=== PATIENT | female | born 1985 | race Caucasian/White ===

== ENCOUNTER 2017-03-16 15:42 | Emergency (ER) | payer OTHER ==
[~2017-03-16] VITALS: Ht 160 cm; Wt 54.0 kg
[2017-03-16 15:44] VITALS: Ht 160 cm; Wt 54.0 kg
--- NOTE | 2017-03-16 16:57 | RADRPT ---
PROCEDURE: Chest Radiograph. CLINICAL INDICATION: Chest pain TECHNIQUE: Single frontal chest radiograph. COMPARISON: None available FINDINGS: The cardiomediastinal silhouette is within normal limits. No infiltrate or effusion is seen. Th e bones are intact. IMPRESSION: 1. Unremarkable chest radiograph. RPTAT: [facility] .Edis Messina MD, MD Date Time Electronically viewed and signed by .Edis Messina MD, on 03/16/2017 16:56 .B/
--- NOTE | 2017-03-16 18:06 | ERD ---
ER Documentation Chief Complaint Date/Time DATE: 03/16/17 TIME: 18:04 Chief Complaint 8/10 CP with SOB and Anxiety x 30 minutes HPI 31-year-old female patient with a past medical history of leukemia presents to the ED complaining of chest pain and shortness of breath that started earlier this morning. Reports that it feels like someone is talking her chest region. States that it is worse when she presses on her chest region. Denies any alleviating factors. States that she has been taking Advil with slight relief of her pain. Denies any wheezing, shortness of breath, fever, chills, abdominal pain, nausea, vomiting. ROS All systems reviewed and are negative except as per history of present illness. Allergies Allergies: Coded Allergies: No Known Allergy (Unverified , 03/16/17) PMhx/Soc Medical and Surgical Hx: pt denies Medical Hx, pt denies Surgical Hx Hx Alcohol Use: No Hx Substance Use: No Hx Tobacco Use: No Smoking Status: Unknown if ever smoked Physical Exam Vitals Vital Signs Date Time Temp Pulse Resp B/P Pulse Ox O2 Delivery O2 Flow Rate FiO2 03/16/17 15:44 98.3 89 18 140/97 97 Physical Exam Const: [id number], well-nourished. In no acute distress. Head: Atraumatic, normocephalic Eyes: Normal Conjunctiva without injection. No purulent discharge. PERRL. EOMI ENT: Normal external ear. Ear canal without erythema. Tympanic membrane pearly quispe without effusion or bulging. Nasal canal clear with normal turbinates. Moist oropharynx without tonsillar exudates. Non-erythematous pharynx. Uvula midline. No drooling. No trismus. Neck: Full range of motion. No meningismus. No cervical lymphadenopathy. Resp: Clear to auscultation bilaterally. No wheezing, rhonchi, rales, or crackles. No accessory muscle use. No retractions. Cardio: Regular rate and rhythm. No murmurs, rubs or gallops. Chest: Anterior chest pain is reproducible. Abd: Soft, non tender, non distended. Normal bowel sounds. No palpable masses. No rebound tenderness. No guarding. Skin: No petechiae or rashes Back: No midline tenderness. No CVA tenderness. Ext: No cyanosis, or edema. Neur: Awake and alert. Psych: Normal Mood and Affect Procedures/MDM This is a 31-year-old female patient with no significant past medical history presents to the ED complaining of chest pain that started earlier today. Patient is afebrile and nontoxic-appearing. Patient has normal vital signs. Patient was offered Ativan and Toradol however she denied wanting any medications. Chest x-ray shows no pleural effusion, pneumothorax, pneumonia. Chest pain is reproducible. EKG reviewed and interpreted by Dr. Romero Rate/Rhythm: [89 bpm, Normal Sinus Rhythm] No ectopy, no ST elevations, normal axis. QRS, ST, T-waves: [No changes consistent w/ acute ischemia] Impression: [No evidence of ischemia or arrhythmia] Low suspicion for acute myocardial infarction, pneumothorax, pneumonia, cardiac tamponade, pulmonary embolism, AAA, aortic dissection, Boerhaave's syndrome, cardiac dysrhythmias,meningitis, intracranial bleed, seizure, stroke, TIA or other emergent conditions. Upon discharge, patient stated that she also had 2 episodes of nonbilious nonbloody diarrhea. I stated that this could likely be viral as this is nonbloody. There is low suspicion for bacterial diarrhea, acute abdomen, or other emergent conditions. Patient eloped from the ED prior to receiving discharge papers. She was instructed that if anything is worse to return to the ED for any worsening symptoms - fever, abdominal pain, consistent and persistent diarrhea, vomiting, Departure Diagnosis: Primary Impression: Chest wall pain Condition: Stable TOLU CASTANO PA-C Mar 16, 2017 18:06
== END 2017-03-16 17:55 | disposition home or self-care (01) ==
LOC: FTE 15:42
DX: R07.89 Other chest pain (principal)
CPT/HCPCS: 71010; 93005